=== PATIENT | female | born 1980 ===

== ENCOUNTER 2017-04-22 22:36 | Emergency (ER) | payer OTHER ==
[2017-04-22 22:58] VITALS: BMI 33.2
[2017-04-22 23:01] VITALS: BP 124/77; PULSE 68; RESP 18; TEMP 99.4; O2SAT 100
[2017-04-22] MEDS ORDERED: Ciprofloxacin/Dexamethasone OTIC SUSP AS STA (23:21)
--- NOTE | 2017-04-22 23:25 | ED PDOC ---
Arrival/HPI - General Historian: Patient <Micky Wood - Last Filed: 04/22/17 23:37> <Oliver Martin - Last Filed: 04/23/17 00:03> - General Chief Complaint: ENT Problem Time Seen by Provider: 04/22/17 23:15 - History of Present Illness Narrative History of Present Illness (Text): 04/22/17 23:22 36 y/o female, no pmh, nkda, c/o lt. sided ear pain x 3 days s/p been swimming for 1 week. Aching pain, aggravated by lt. ear pulling, no dizziness, no chest pain or shortness of breath, no dizziness, no dental pain, no rash, no other medical or psychological complaints. (Micky Wood) Past Medical History - Provider Review Nursing Documentation Reviewed: Yes - Infectious Disease Hx of Infectious Diseases: None - Psychiatric Hx Substance Use: No - Surgical History Hx Section: Yes (x1) Other/Comment: [place] sx - Anesthesia Hx Anesthesia: Yes Hx Anesthesia Reactions: No Hx Malignant Hyperthermia: No <Micky Wood - Last Filed: 04/22/17 23:37> Family/Social History - Physician Review Nursing Documentation Reviewed: Yes Family/Social History: Unknown Family HX Smoking Status: Never Smoked Hx Alcohol Use: No Hx Substance Use: No <Micky Wood - Last Filed: 04/22/17 23:37> Allergies/Home Meds <Micky Wood - Last Filed: 04/22/17 23:37> <Oliver Martin - Last Filed: 04/23/17 00:03> Allergies/Adverse Reactions: Allergies No Known Allergies Allergy (Verified 04/22/17 22:58) Review of Systems - Review of Systems Constitutional: absent: Fatigue, Fevers Eyes: absent: Vision Changes ENT: Other (lt. sided ear pain). absent: Hearing Changes Respiratory: absent: SOB, Cough Cardiovascular: absent: Chest Pain Gastrointestinal: absent: Abdominal Pain, Diarrhea, Nausea, Vomiting Skin: absent: Rash, Pruritis Neurological: absent: Headache, Dizziness <Micky Wood - Last Filed: 04/22/17 23:37> Physical Exam Vital Signs Reviewed: Yes Temperature: Afebrile Blood Pressure: Normal Pulse: Regular Respiratory Rate: Normal Appearance: Positive for: Well-Appearing, Non-Toxic, Comfortable Pain Distress: Moderate Mental Status: Positive for: Alert and Oriented X 3 - Systems Exam Head: Present: Atraumatic, Normocephalic Pupils: Present: PERRL Extroacular Muscles: Present: EOMI Conjunctiva: Present: Normal Ears: Present: Other (Ears: bilateral TMs carmencita color and intact, lt. auditory canal mild erythematous and aggravated by pulling the lt. external auricle, no rash, rt. auditory canal non-erythematous, no mastoid tenderness. ) Mouth: Present: Moist Mucous Membranes, Normal Lips, Normal Tounge Neck: Present: Normal Range of Motion Respiratory/Chest: Present: Clear to Auscultation, Good Air Exchange. No: Respiratory Distress, Accessory Muscle Use Cardiovascular: Present: Regular Rate and Rhythm, Normal S1, S2. No: Murmurs Abdomen: Present: Normal Bowel Sounds. No: Tenderness, Distention, Peritoneal Signs, Rebound, Guarding Back: Present: Normal Inspection Upper Extremity: Present: Normal Inspection. No: Cyanosis, Edema Lower Extremity: Present: Normal Inspection. No: Edema Neurological: Present: GCS=15, Speech Normal, Motor Func Grossly Intact, Gait Normal, Memory Normal Skin: Present: Warm, Dry, Normal Color. No: Rashes Psychiatric: Present: Alert, Oriented x 3, Normal Insight, Normal Concentration <Micky Wood - Last Filed: 04/22/17 23:37> Medical Decision Making <Micky Wood - Last Filed: 04/22/17 23:37> <Oliver Martin - Last Filed: 04/23/17 00:03> ED Course and Treatment: 04/22/17 23:24 -toradol IM, cipro dex -Discharge home with motrin, ciprodex, keep the left ear dry and clean, avoid rubbing or touching the ear, follow up with your own pmd and ENT within 2 days, return to the ER for any new or worsening signs or symptoms. (Micky Wood) - Medication Orders Current Medication Orders: Discontinued Medications Ciprofloxacin/Dexamethasone (Ciprodex Otic) 4 drop STAT STA Stop: 04/22/17 23:22 Last Admin: 04/22/17 23:54 Dose: 4 drop Ketorolac Tromethamine (Toradol) 60 mg IM STAT STA Stop: 04/22/17 23:22 Last Admin: 04/22/17 23:55 Dose: 60 mg - PA / TRUST EVALUATION SUPERVISOR / Resident Statement FLORENCE has reviewed & agrees with the documentation as recorded. <Micky Wood - Last Filed: 04/22/17 23:37> - PA / TRUST EVALUATION SUPERVISOR / Resident Statement [place]ORENCE has reviewed & agrees with the documentation as recorded. <Oliver Martin - Last Filed: 04/23/17 00:03> Disposition/Present on Arrival - Present on Arrival Any Indicators Present on Arrival: No History of DVT/PE: No History of Uncontrolled Diabetes: No Urinary Catheter: No History of Decub. Ulcer: No History Surgical Site Infection Following: None - Disposition Have Diagnosis and Disposition been Completed?: Yes Disposition Time: 23:25 Patient Plan: Discharge <Micky Wood - Last Filed: 04/22/17 23:37> <Oliver Martin - Last Filed: 04/23/17 00:03> - Disposition Diagnosis: Otitis externa Disposition: HOME/ ROUTINE Condition: GOOD Additional Instructions: -Discharge home with motrin, ciprodex, keep the left ear dry and clean, avoid rubbing or touching the ear, follow up with your own pmd and ENT within 2 days, return to the ER for any new or worsening signs or symptoms. Prescriptions: Ciprofloxacin/Dexamethasone [Ciprodex 0.3%-0.1% 7.5 Ml] 4 drop BID #1 bottle Naproxen 500 mg PO BID #20 tab Referrals: Alexandro Vasquez DO [Staff Provider] - Follow up with primary [facility] [place] [Outside] - Follow up with primary Forms: [facility] (Setswana), WORK NOTE
== END 2017-04-23 00:33 | disposition home or self-care (01) ==
LOC: ED 22:36
DX: H60.92 Unspecified otitis externa, left ear (principal)
CPT/HCPCS: 96372; 99283; J1885